=== PATIENT | male | born 1965 | race Caucasian/White ===

== ENCOUNTER → 2016-12-29 | Outpatient (CLI) | payer BC ==
--- NOTE | 2016-12-31 08:57 | HOLTER ---
[facility] Interpretive Statements Chews a can a day [age] eight hour holter monitor done for palpitations with 37:16 hours recorded. No activity or symptom diary kept. There were [id number] beats recorded with [id number] normal beats. The average heart rate was 84 with slowest rate of 49 during sleeping hours and fastest sinus rate of 130. There were 9 PACs with 3 singlets, 1 pair and one 4 beat run to rate of 216. There were 5 VPCs, all singlets. There were no pauses and no atrial fibrillation. There were 2 asymptomatic episodes of 1mm flat ST depression with normal heart rates. No ectopy or significant tachycardia was seen with patient activated rhythm markings. IMP: Mildly abnormal holter study with rare asymptomatic PACs and VPCs and brief run of SVT. Asymptomatic flat ST depression with normal heart rates was noted. No correlation of patient activation of symptoms with ectopy. Consider stress test. Electronically Signed On 01-01-17 11:31:56 MDT by Arnold Wade [id number]
== END ==
LOC: RT 16:47
PROVIDERS: ATTEND Family Medicine
DX: R00.2 Palpitations (principal)
CPT/HCPCS: 93225; 93226; 93227

== ENCOUNTER → 2017-01-26 | Outpatient (CLI) | payer BC ==
--- NOTE | 2017-01-26 10:49 | PE ---
[facility] Interpretive Statements [email or web address]
--- NOTE | 2017-01-26 11:31 | DI ---
PA /LATERAL CHEST X-RAY, 01/26/2017 9:59 AM : Clinical History: Chest pain Previous Exam: September 22, 2014 There is no acute soft tissue or bony abnormality. Heart size is normal. Lungs are clear. Mediastinal structures are normal. There are no pulmonary nodules. IMPRESSION: Normal chest x-ray.
== END ==
LOC: RT 09:31
PROVIDERS: ATTEND Family Medicine
DX: R00.2 Palpitations (principal); R06.02 Shortness of breath; R07.9 Chest pain, unspecified; R94.39 Abnormal result of other cardiovascular function study; Z82.49 Family history of ischemic heart disease and other diseases of the circulatory system; F17.200 Nicotine dependence, unspecified, uncomplicated
CPT/HCPCS: 71020; 94060